=== PATIENT | female | born 1965 | race Caucasian/White ===

== ENCOUNTER 2023-10-09 13:25 | Observation (INO) | payer BC ==
[2023-10-09 13:59] LABS: #Basophils 0.1 10x3/uL (0.0-0.2); #Eosinphils 0.1 10x3/uL (0.0-0.5); #Monocytes 0.6 10x3/uL (0.0-1.1); #Neutrophils 4.4 10x3/uL (1.5-8.4); %Basophils 0.7 % (0.0-2.0); %Eosinophils 0.7 % (0.0-6.0); %Lymphocytes 27.7 % (18.0-47.0); %Monocytes 8.6 % (0.0-10.0); %Neutrophils 62.2 % (40.0-75.0); Hematocrit 40.5 % (34.9-44.5); Hemoglobin 13.8 g/dL (12.0-15.5); Mean Corpuscular HGB CONC 34.1 g/dL (32.0-36.0); Mean Corpuscular Hemoglobin 29.3 pg (27.0-33.0); Mean Platelet Volume 10.1 fl (7.4-10.4); Platelet Count 251 10x3/uL (150-450); RBC Distribution Width 12.6 % (11.5-14.5); Red Blood Cell (RBC) Count 4.71 10x6/uL (3.90-5.03)
[2023-10-09] MEDS ORDERED: Nitroglycerin 0.4 MG TAB 1 EACH ONE (14:10)
[2023-10-09] MEDS ORDERED: Aspirin Chewable 81 MG TAB ONE (14:10)
[2023-10-09] MEDS ORDERED: Nitroglycerin 2% Ointment 1 INCH/1 GM Packet ONE (14:14)
[2023-10-09 14:21] LABS: ALT (SGPT) 12 U/L (8-55); AST (SGOT) 17 U/L (5-34); Albumin 4.7 g/dL (3.5-5.0); Alkaline Phosphatase 87 U/L (40-110); Anion Gap 17 mmol/L (10-20); BUN (Urea Nitrogen) 18 mg/dL (9.8-20.1); Bilirubin, Total 0.6 mg/dL (0.2-1.2); Calc. Creatinine Clearance 0 mL/min (70-130); Calcium 9.7 mg/dL (7.8-10.44); Carbon Dioxide 23 mmol/L (22-29); Chloride 104 mmol/L (98-107); Estimated GFR 82; Globulin 2.7 g/dL (2.4-3.5); Glucose 93 mg/dL (70-105); Potassium 4.4 mmol/L (3.5-5.1); Protein, Total 7.4 g/dL (6.0-8.3); Sodium 140 mmol/L (136-145)
[2023-10-09 14:26] LABS: Troponin I Less than 0.010 ng/mL (< 0.028)
[2023-10-09] MEDS ORDERED: Lorazepam 2 MG/ML VIAL ONE (15:22)
[2023-10-09 17:15] VITALS: BMI 29.1
[2023-10-09 19:22] LABS: Troponin I Less than 0.010 ng/mL (< 0.028)
[2023-10-09 23:17] LABS: Troponin I Less than 0.010 ng/mL (< 0.028)
[2023-10-10] MEDS ORDERED: Lorazepam 0.5 MG TAB PO PRN (07:12)
[2023-10-10] MEDS ORDERED: Amlodipine 5 MG TAB PO SCH (09:00)
[2023-10-10] MEDS ORDERED: Aspirin Chewable 81 MG TAB PO SCH (09:00)
[2023-10-10] MEDS ORDERED: DULoxetine 30 MG CAP PO SCH (09:00)
[2023-10-10 13:23] VITALS: BP 142/67; TEMP 97.6
== END 2023-10-10 14:05 | disposition home or self-care (01) ==
LOC: CSHERS 13:25 → CSHTELE 16:20
PROVIDERS: ADMIT Internal Medicine; ATTEND Internal Medicine
DX: R07.9 Chest pain, unspecified (principal); I10 Essential (primary) hypertension; F41.9 Anxiety disorder, unspecified; Z79.899 Other long term (current) drug therapy
CPT/HCPCS: 36415; 71045; 80053; 83690; 83735; 84439; 84443; 84484; 85025; 93005; 93306; 96374; G0378; J2060